=== PATIENT | female | born 1975 | race Caucasian/White ===

== ENCOUNTER 2021-07-25 08:00 | Outpatient (CLI) | payer OTHER, SELFPAY ==
--- NOTE | ~2021-07-25 | US_ITS ---
EXAMINATION: US pelvic complete w TV EXAM DATE: 07/25/2021 08:29 INDICATION: pelvic pain . TECHNIQUE: Pelvic transabdominal and transvaginal sonogram was performed. There are multiple graysca le and Doppler images available for interpretation. There is no prior study for comparison. FINDINGS: Hysterectomy. The vaginal cuff, cervix unremarkable. Right adnexa: The ovary is not identified. There is no adnexal mass. Left adnexa: The ovary measures 1.1 x 1.0 x 0.7 cm and is morphologically normal. Ovarian vascular fl ow confirmed. IMPRESSION: Unremarkable left ovary. Reviewed, dictated and finalized at location B. T SNATCHER IMPRESSION: Unremarkable left ovary.
== END 2021-07-25 08:01 | disposition home or self-care (01) ==
LOC: ANHIMG 08:03
PROVIDERS: Visit Provider Obstetrics & Gynecology
DX: R10.2 Pelvic and perineal pain (principal)
CPT/HCPCS: 76830; 76856

== ENCOUNTER 2022-05-12 10:41 | Emergency (ER) | payer OTHER, SELFPAY ==
[2022-05-12 12:16] VITALS: BP 120/83; PULSE 91; RESP 18; TEMP 36.3; O2SAT 99
--- NOTE | 2022-05-12 13:14 | ED.URI ---
HPI - URI/Sore Throat General Chief Complaint: Upper Respiratory Infection Stated Complaint: nasal drainage,chest congestion,cough Time Seen by Provider: 05/12/22 13:05 Source: patient Mode of arrival: ambulatory Limitations: no limitations History of Present Illness HPI Narrative: Patient presents today with a 2 week history of cough, nasal drainage. States cough has worsened over the last couple of days. She was prescribed a Z-Jonathan by her PCP on 05/03 for, a sinus infection. Denies fever or shortness of breath. She has also been taking Mucinex DM with some relief. She has tried Benadryl as well, which has helped some with her drainage. Related Data Home Medications Medication Instructions Recorded Confirmed lamotrigine 100 mg tablet 100 mg PO DAILY 05/18/19 12/29/21 trazodone 150 mg tablet 150 mg PO BID 05/18/19 12/29/21 vilazodone 40 mg tablet (Viibryd) 40 mg PO DAILY 05/18/19 12/29/21 levocetirizine 5 mg tablet (Xyzal) 5 mg PO DAILY 01/14/20 12/29/21 black cohosh 200 mg capsule 200 mg PO DAILY 07/12/21 12/29/21 levothyroxine 112 mcg capsule 112 mcg PO DAILY 08/09/21 12/29/21 propranolol 10 mg tablet 10 mg PO Q12H PRN 08/09/21 12/29/21 Allergies Allergy/AdvReac Type Severity Reaction Status Date / Time Latex, Natural Rubber Allergy Mild rash Verified 01/23/22 12:35 clarithromycin [From Biaxin] Allergy Unknown Verified 01/23/22 12:35 Review of Systems Review of Systems: CONSTITUTIONAL: Denies body aches, fever, chills, or sweats. EYES: Denies visual changes, redness, or discharge. ENT: Denies rhinorrhea, congestion, sore throat, or otalgia.+ nasal drainage CARDIOVASCULAR: Denies chest pain, palpitations, or edema. RESPIRATORY: Denies dyspnea.+ Cough GASTROINTESTINAL: Denies abdominal pain, nausea, vomiting, or diarrhea. GENITOURINARY: Denies dysuria or hematuria. SKIN: Denies rash, itching, or wounds. MUSCULOSKELETAL: Denies back pain, joint pain, or myalgia. NEUROLOGIC: Denies headache, numbness, tingling, or weakness. PSYCH: Denies depression or anxiety. [facility] Past Medical History Medical History Acid reflux Anxiety Cholecystectomy planned Hernia HPV (human papilloma virus) infection Migraines PTSD (post-traumatic stress disorder) Surgical History Surgical History H/O breast biopsy H/O dilation and curettage H/O oophorectomy right ovary H/O ovarian cystectomy H/O thyroidectomy History of appendectomy History of hysterectomy, supracervical [place] teeth removed Family History Family History Mother Breast cancer Other Breast cancer Grandparent Diabetes mellitus Social History Social History Smoking status: Former smoker Alcohol intake: current Alcohol use details: 1-2 TIMES PER YEAR Substance use: current Substance use type: marijuana Comments At time of signature, I have reviewed and agree with nursing past medical, surgical, social and family history unless otherwise noted. Please see nursing chart for further information. There is no relevant family history pertinent to the presenting complaint Exam Narrative: GENERAL: mildly ill-appearing, well-nourished, and in no acute distress. HEAD: Normocephalic, atraumatic. EYES: EOMI. No redness or drainage. Conjunctivae normal. ENT: Mucous membranes pink and moist. Nares congested. No rhinorrhea. TMs normal bilaterally. Throat normal. Uvula midline. NECK: Normal AROM. Supple. No lymphadenopathy. CHEST: No respiratory distress. slight inspiratory wheeze in the left lower lobe, otherwise clear. Frequent harsh cough noted with deep breath. HEART: Regular rate and rhythm. No murmur appreciated. Normal peripheral pulses. EXTREMITIES: Normal range of motion. No edema. SKIN
== END 2022-05-12 13:22 | disposition home or self-care (01) ==
PROVIDERS: Emergency Provider Nurse Practitioner
DX: J40 Bronchitis, not specified as acute or chronic (principal); Z87.891 Personal history of nicotine dependence
CPT/HCPCS: 99213; G0463

== ENCOUNTER 2022-06-22 09:31 | Outpatient (CLI) | payer OTHER, SELFPAY ==
--- NOTE | ~2022-06-22 | MR_ITS ---
MRI of the brain Clinical History: Headache Technique: Axial and sagittal T1-weighted images were acquired. These were followed by axial T2-weigh ronda, diffusion weighted, gradient, and FLAIR images. Following intravenous administration of 16 cc Mu ltiHance gadolinium, T1-weighted fat-sat imaging was performed in the axial and coronal planes. COMPARISON: 05/29/2019 Findings: No abnormal signal seen in the brain parenchyma. No acute infarct, intracranial hemorrhage, or mass lesion. Ventricles and subarachnoid spaces are unremarkable. Orbits are unremarkable. Paranasal sinuses and m astoid air cells are clear. Major intracranial flow voids appear intact. Sagittal midline structures are intact. No abnormal postcontrast enhancement identified. IMPRESSION: Unremarkable exam. Reviewed, dictated and finalized at location M. RAL PRODUCTION MANAGER IMPRESSION: Unremarkable exam.
== END 2022-06-22 09:32 ==
LOC: MICIMG 09:35
PROVIDERS: PCP Nurse Practitioner Family
DX: G44.009 Cluster headache syndrome, unspecified, not intractable (principal)
CPT/HCPCS: 70553; A9577

== ENCOUNTER 2022-09-21 17:26 | Emergency (ER) | payer OTHER, SELFPAY ==
[2022-09-21 17:28] VITALS: BP 121/70; PULSE 83; RESP 16; TEMP 37; O2SAT 99
--- NOTE | 2022-09-21 20:02 | ED.NAVMDI ---
HPI - Nausea/Vomiting/Diarrhea General Chief complaint: Nausea/Vomiting/Diarrhea <VA Perez Last Filed: 09/22/22 00:27> Stated complaint: n/v <Shana Goodman PA-C - Last Filed: 09/22/22 00:27> Time Seen by Provider: 09/21/22 19:49 <VA Perez Last Filed: 09/22/22 00:27> History of Present Illness HPI Narrative: Patient is a 47-year-old female here for evaluation of nausea vomiting and diarrhea over the past 2 days. Patient states that she has been unable to tolerate any p.o. for the past several days and has been vomiting nonbloody/nonbilious emesis after every p.o. trial. She also reports numerous episodes of nonbloody diarrhea yesterday, none today. She denies any abdominal pain, fevers, sick contacts, new or suspicious foods. <VA Perez Last Filed: 09/22/22 00:27> Related Data Home medications: Home Medications Medication Instructions Recorded Confirmed lamotrigine 100 mg tablet 100 mg PO DAILY 05/18/19 12/29/21 trazodone 150 mg tablet 150 mg PO BID 05/18/19 12/29/21 vilazodone 40 mg tablet (Viibryd) 40 mg PO DAILY 05/18/19 12/29/21 levocetirizine 5 mg tablet (Xyzal) 5 mg PO DAILY 01/14/20 12/29/21 black cohosh 200 mg capsule 200 mg PO DAILY 07/12/21 12/29/21 levothyroxine 112 mcg capsule 112 mcg PO DAILY 08/09/21 12/29/21 propranolol 10 mg tablet 10 mg PO Q12H PRN 08/09/21 12/29/21 <VA Perez Last Filed: 09/22/22 00:27> Allergies/Adverse reactions: Allergies Allergy/AdvReac Type Severity Reaction Status Date / Time Latex, Natural Rubber Allergy Mild rash Verified 09/21/22 17:32 clarithromycin [From Biaxin] Allergy Unknown Verified 09/21/22 17:32 <Shana Goodman PA-C - Last Filed: 09/22/22 00:27> Review of Systems Review of Systems: Gen.: Denies fevers or chills Eyes: Denies eye pain or visual change ENT: Denies congestion Respiratory: Denies shortness of breath or cough CV: Denies chest pain or palpitations GI: Reports nausea, vomiting : denies burning, urgency, frequency or hematuria Musculoskeletal: Denies back pain or muscle pain Neuro: Denies numbness, tingling, weakness or focal weakness Skin: Denies rash Except as documented, all other systems reviewed and negative <Shana Goodman PA-C - Last Filed: 09/22/22 00:27> [facility] Past Medical History Medical History: Medical History Acid reflux Anxiety Cholecystectomy planned Hernia HPV (human papilloma virus) infection Migraines PTSD (post-traumatic stress disorder) <Shana Goodman PA-C - Last Filed: 09/22/22 00:27> Surgical History Surgical History: Surgical History H/O breast biopsy H/O dilation and curettage H/O oophorectomy right ovary H/O ovarian cystectomy H/O thyroidectomy History of appendectomy History of hysterectomy, supracervical [place] teeth removed <Shana Goodman PA-C - Last Filed: 09/22/22 00:27> Family History Family History: Family History Mother Breast cancer Other Breast cancer Grandparent Diabetes mellitus <Shana Goodman PA-C - Last Filed: 09/22/22 00:27> Social History Social History: Social History Smoking status: Former smoker Alcohol intake: current Alcohol use details: 1-2 TIMES PER YEAR Substance use: current Substance use type: marijuana <BART PerezC - Last Filed: 09/22/22 00:27> Exam Narrative: APPEARANCE: Uncomfortable appearing, holding emesis bag, actively vomiting yellow emesis during examination Head: Normocephalic and atraumatic. EYES: PERRLA/EOMI, conjunctivae clear NOSE: No nasal drainage EARS: External ear normal in appearance THROAT: [place]
[2022-09-21 20:03] LABS: Basophils Percent Auto 0.2 % (0.2-1.2); Eosinophils Percent Auto 0.2 % (0-4.4); Hematocrit 42.7 % (37.0-47.0); Hemoglobin 14.8 g/dL (12.0-15.0); Immature Granulocyte Absolute 0.01 K/mm3 (0.00-0.031); Immature Granulocyte Percent A 0.1 % (0-0.5); Lymphocytes Absolute Auto 1.03 K/mm3 (0.9-3.2); Lymphocytes Percent Auto 12.1 % (18.3-44.2); Mean Corpuscular HGB Conc 34.7 g/dl (32-36); Mean Corpuscular Hemoglobin 32.2 pg (26-34); Mean Corpuscular Volume 92.8 fl (80-100); Mean Platelet Volume 9.5 fl (7.4-10.4); Monocytes Absolute Auto 0.5 K/mm3 (0.1-0.6); Monocytes Percent Auto 5.4 % (2.6-8.5); Platelet Count Result 221 k/mm3 (150-375); White Blood Count 8.5 K/mm3 (4.5-10.0)
[2022-09-21 20:18] LABS: Alanine Aminotransferase 15 U/L (6-35); Albumin Level 4.5 g/dL (3.5-5.1); Alkaline Phosphatase 72 U/L (38-126); Anion Gap 8 mmol/L (8-16); Aspartate Amino Transferase 26 U/L (14-36); Bilirubin,Total 0.7 mg/dL (0.2-1.3); Blood Urea Nitrogen 14 mg/dL (7-17); Carbon Dioxide 21 mmol/L (22-30); Chloride 108 mmol/L (98-107); Estimated CRCL calculation 62 ml/min; Estimated Glomerular Filt Rate 60; Glucose 110 mg/dL (65-110); Lipase 59 U/L (23-300); Potassium 3.6 mmol/L (3.4-5.0); Sodium 137 mmol/L (137-145)
[2022-09-21] MEDS: FAMOTIDINE 20 MG/2 ML VIAL IV PUSH (20:18)
[2022-09-21] MEDS: SODIUM CHLORIDE 0.9% IV 1,000 ML 999 ML IV CONT ×2 (20:18→21:26)
[2022-09-21] MEDS: ONDANSETRON INJ 4 MG/2 ML VIAL IV PUSH (20:18)
[2022-09-21 20:35] LABS: Appearance Urine Turbid (Clear); Bacteria Urine None Seen /hpf; Bilirubin Urine Negative (Negative); Blood Urine Negative (Negative); Color Urine Dark Yellow (Yellow); Glucose Urine UA Negative (Negative); Hyaline Casts Urine Present /lpf; Ketones Urine 2+ mg/dL (Negative); Leukocyte Esterase Ur 1+ LEU/UL (Negative); Nitrate Urine Negative (Negative); Protein Urine Trace mg/dL (Negative); Specific Grav Ur 1.034 (1.001-1.035); Squamous Epithelial Cell Urine Moderate /hpf (Few); WBC Urine 21-50 /hpf
[2022-09-21 20:36] LABS: Add Urine Microscopic? YES
[2022-09-21] MEDS: ACETAMINOPHEN 325 MG TABLET 650 MG PO (22:05)
[2022-09-21 22:41] VITALS: BP 118/69; PULSE 89; RESP 18; TEMP 36.6; O2SAT 99
== END 2022-09-21 22:41 | disposition home or self-care (01) ==
PROVIDERS: Emergency Provider Physician Assistant; PCP Nurse Practitioner Family
DX: K52.9 Noninfective gastroenteritis and colitis, unspecified (principal); N39.0 Urinary tract infection, site not specified; K21.9 Gastro-esophageal reflux disease without esophagitis; F41.9 Anxiety disorder, unspecified; F43.10 Post-traumatic stress disorder, unspecified; E89.0 Postprocedural hypothyroidism; Z90.721 Acquired absence of ovaries, unilateral; Z90.710 Acquired absence of both cervix and uterus; Z87.891 Personal history of nicotine dependence
CPT/HCPCS: 36415; 80053; 81001; 81025; 83690; 85025; 87086; 87088; 96361; 96374; 96375; 99284; A9270; J2405; J7030

== ENCOUNTER 2022-11-01 17:30 | Emergency (ER) | payer OTHER, SELFPAY ==
--- NOTE | ~2022-11-01 | XR_ITS ---
EXAMINATION: XR chest 1V portable DATE: 11/01/2022 20:16 INDICATION: COVID presenting with cough and congestion TECHNIQUE: frontal view of the chest was obtained. COMPARISON: None FINDINGS: The lungs are clear with no focal airspace opacities, pulmonary edema, pleural effusion or pneumothor ax. The cardiomediastinal silhouette is normal. Cholecystectomy clips the right upper quadrant. 15 de gree upper thoracic levoscoliosis. IMPRESSION: 1. No acute cardiopulmonary disease. Reviewed, dictated and finalized at location A.
[2022-11-01 17:40] VITALS: BP 116/92; PULSE 90; RESP 17; TEMP 36.6; O2SAT 99
--- NOTE | 2022-11-01 19:59 | ECG_ITS ---
Measurements Intervals [place] Rate: 76 P: 76 NC: 153 QRS: 70 QRSD: 74 T: 63 QT: 361 QTc: 408 Interpretive Statements SINUS RHYTHM BORDERLINE ST-T WAVE ABNORMALITY- ANTERIOR LEADS BASELINE ARTIFACT- I, II, AVR, AVL BORDERLINE ECG NO PREVIOUS ECG AVAILABLE FOR COMPARISON Electronically Signed On 11-01-2022 21:33:17 CDT by Janes Nevarez D.O.
[2022-11-01] MEDS: IPRATROPIUM BR 0.02% INH SOLN 0.5 MG/2.5 ML VIAL INHALATION (20:17)
[2022-11-01] MEDS: LEVALBUTEROL NEB 1.25 MG/3 ML INHALATION (20:17)
[2022-11-01 20:20] VITALS: PULSE 90; RESP 20
[2022-11-01 20:33] LABS: Basophils Percent Auto 0.4 % (0.2-1.2); Eosinophils Absolute Auto 0.1 K/mm3 (0-0.3); Eosinophils Percent Auto 2.2 % (0-4.4); Hematocrit 41.6 % (37.0-47.0); Hemoglobin 14.4 g/dL (12.0-15.0); Immature Granulocyte Absolute 0.02 K/mm3 (0.00-0.031); Immature Granulocyte Percent A 0.4 % (0-0.5); Lymphocytes Absolute Auto 1.74 K/mm3 (0.9-3.2); Lymphocytes Percent Auto 31.4 % (18.3-44.2); Mean Corpuscular HGB Conc 34.6 g/dl (32-36); Mean Corpuscular Hemoglobin 31.6 pg (26-34); Mean Corpuscular Volume 91.4 fl (80-100); Mean Platelet Volume 9.7 fl (7.4-10.4); Monocytes Absolute Auto 0.5 K/mm3 (0.1-0.6); Neutrophils Absolute Auto 3.2 K/mm3 (1.3-6.7); Neutrophils Percent Auto 56.6 % (45.5-73.1); Platelet Count Result 202 k/mm3 (150-375); Red Blood Count 4.55 M/mm3 (4.2-5.4); Red Cell Distribution Width 12.2 % (11.5-14.5); White Blood Count 5.6 K/mm3 (4.5-10.0)
[2022-11-01] MEDS: KETOROLAC 30 MG/ML VIAL (*BKC) 15 MG IV PUSH (20:35)
[2022-11-01] MEDS: ONDANSETRON INJ 4 MG/2 ML VIAL IV PUSH (20:35)
[2022-11-01] MEDS: SODIUM CHLORIDE 0.9% IV 1,000 ML 999 ML IV CONT (20:35)
[2022-11-01] MEDS: BENZONATATE 100 MG CAPSULE 200 MG PO (20:35)
[2022-11-01 20:48] LABS: Lactic Acid Reflex 0.9 mmol/L (0.7-2.0)
[2022-11-01 20:51] LABS: Alanine Aminotransferase 16 U/L (6-35); Albumin Level 4.2 g/dL (3.5-5.1); Alkaline Phosphatase 61 U/L (38-126); Anion Gap 9 mmol/L (8-16); Aspartate Amino Transferase 25 U/L (14-36); Bilirubin,Total 0.6 mg/dL (0.2-1.3); Blood Urea Nitrogen 13 mg/dL (7-17); Calcium 8.2 mg/dL (8.4-10.2); Carbon Dioxide 21 mmol/L (22-30); Chloride 109 mmol/L (98-107); Estimated CRCL calculation 74 ml/min; Estimated Glomerular Filt Rate > 60; Glucose 93 mg/dL (65-110); Potassium 3.7 mmol/L (3.4-5.0); Sodium 139 mmol/L (137-145)
[2022-11-01 20:55] LABS: D Dimer 0.45 ug/mL (<0.48)
[2022-11-01 21:03] LABS: NT Pro B Type Natriuretic Pept < 20 pg/mL (19.9-100); Troponin I < 0.012 ng/mL (0.000-0.034)
[2022-11-01 21:18] LABS: Procalcitonin 0.1 ng/mL
--- NOTE | 2022-11-01 21:31 | ED.GENADULT ---
HPI - General Adult General Chief complaint: Upper Respiratory Infection Stated complaint: upper respiratory infection Time Seen by Provider: 11/01/22 19:51 History of Present Illness HPI narrative: Patient 47-year-old female who presents the emergency department with chief complaint of cough and generalized malaise. The patient reports she was diagnosed with COVID-19 approximately 8 days ago patient states she is continue to cough have episodes of vomiting after she coughs and reports that she has had discomfort in her chest with the coughing. The patient states she is on a codeine cough medication from her primary doctor and has been taking a decongestant as well. Related Data Home Medications Medication Instructions Recorded Confirmed lamotrigine 100 mg tablet 100 mg PO DAILY 05/18/19 12/29/21 trazodone 150 mg tablet 150 mg PO BID 05/18/19 12/29/21 vilazodone 40 mg tablet (Viibryd) 40 mg PO DAILY 05/18/19 12/29/21 levocetirizine 5 mg tablet (Xyzal) 5 mg PO DAILY 01/14/20 12/29/21 black cohosh 200 mg capsule 200 mg PO DAILY 07/12/21 12/29/21 levothyroxine 112 mcg capsule 112 mcg PO DAILY 08/09/21 12/29/21 propranolol 10 mg tablet 10 mg PO Q12H PRN 08/09/21 12/29/21 Allergies Allergy/AdvReac Type Severity Reaction Status Date / Time Latex, Natural Rubber Allergy Mild rash Verified 09/21/22 17:32 clarithromycin [From Biaxin] Allergy Unknown Verified 09/21/22 17:32 Review of Systems Review of Systems: A 10 system review of systems was completed on the patient and is negative except for what is stated in the HPI. Nursing and ancillary documentation was reviewed. [facility] Past Medical History Medical History Acid reflux Anxiety Cholecystectomy planned Hernia HPV (human papilloma virus) infection Migraines PTSD (post-traumatic stress disorder) Surgical History Surgical History H/O breast biopsy H/O dilation and curettage H/O oophorectomy right ovary H/O ovarian cystectomy H/O thyroidectomy History of appendectomy History of hysterectomy, supracervical [place] teeth removed Family History Family History Mother Breast cancer Other Breast cancer Grandparent Diabetes mellitus Social History Social History Smoking status: Former smoker Alcohol intake: current Alcohol use details: 1-2 TIMES PER YEAR Substance use: current Substance use type: marijuana Exam Narrative: GENERAL: Well-appearing, well-nourished, and in no acute distress. HEAD: Normocephalic, atraumatic. EYES: PERRLA and EOMI. ENT: Nares clear, no rhinorrhea or epistaxis. Mucous membranes moist. NECK: Supple. CHEST: Clear to auscultation. No respiratory distress. HEART: Regular rate and rhythm. No murmur heard. Normal peripheral pulses. ABDOMEN: Soft, nontender, nondistended, normal active bowel sounds. EXTREMITIES: Normal range of motion. No edema. SKIN: Warm, dry, no rash. NEURO: No focal deficits. Alert and oriented x3. PSYCH: Normal mood and affect. Course Vital Signs Vital signs: Vital Signs Temperature 36.6 C 11/01/22 17:40 Pulse Rate 90 11/01/22 17:40 Respiratory Rate 17 11/01/22 17:40 Blood Pressure 116/92 H 11/01/22 17:40 Pulse Oximetry 99 11/01/22 17:40 Oxygen Delivery Room Air 11/01/22 17:40 Temperature 36.6 C 11/01/22 17:40 Pulse Rate 90 11/01/22 20:20 Respiratory Rate 20 11/01/22 20:20 Blood Pressure 116/92 H 11/01/22 17:40 Pulse Oximetry 99 11/01/22 17:40 Oxygen Delivery Room Air 11/01/22 17:40 Medical Decision Making MDM Narrative Medical decision making narrative: Differential diagnosis includes COVID-19 pneumonia, upper respiratory infection, viral syndrome, chest wall pain, pulmonary embolism E
[2022-11-01] MEDS: ALBUTEROL SULFATE (*SP) INHALER 2 PUFF INHALATION (21:58)
[2022-11-01 22:06] VITALS: BP 112/85; PULSE 81; RESP 18; O2SAT 98
== END 2022-11-01 22:09 | disposition home or self-care (01) ==
PROVIDERS: Emergency Provider Emergency Medicine; PCP Nurse Practitioner Family
DX: J06.9 Acute upper respiratory infection, unspecified (principal); Z86.16 Personal history of COVID-19; K21.9 Gastro-esophageal reflux disease without esophagitis; F41.9 Anxiety disorder, unspecified; F43.10 Post-traumatic stress disorder, unspecified; Z90.721 Acquired absence of ovaries, unilateral; E89.0 Postprocedural hypothyroidism; Z90.710 Acquired absence of both cervix and uterus; Z87.891 Personal history of nicotine dependence
CPT/HCPCS: 36415; 71045; 80053; 83605; 83880; 84145; 84484; 85025; 85380; 93005; 94640; 96361; 96374; 96375; 99284; A9270; J1885; J2405; J7030